=== PATIENT | female | born 1950 | race Caucasian/White ===

== ENCOUNTER 2017-02-17 17:38 | Inpatient (IN) | payer MEDICARE, BC ==
[~2017-02-17] VITALS: Ht 154.9 cm; Wt 72.6 kg
[~2017-02-17 17:38] MED LIST: ASPI-482 PO; FEXO30TA7 PO; INSU100V31 SQ; LEVO100T PO; LOSA1TAB17 PO; OMEP20CA9 PO; SIMV10TA3 PO; VERA180T49 PO
[2017-02-17] MEDS ORDERED: traMADol 50 MG TABLET PO ONE (19:15)
[2017-02-17] MEDS ORDERED: IBUPROFEN 400 MG TABLET. PO ONE (19:15)
--- NOTE | 2017-02-17 19:56 | PHYS DOC ---
Past Medical History Past Medical History: Diabetes-Type I, High Cholesterol, Hypertension Past Surgical History: Tonsillectomy, Tubal ligation Alcohol Use: None Drug Use: None Adult General Chief Complaint Chief Complaint: MECHANICAL FALL HPI HPI Patient is a 66 year old female who presents with left medial knee pain after fall from 3ft ladder to standing position and felt pop. She notes having to limp with help to walk. Pain is constant, worse with ROM or walking, achy. She landed on her feet and denies other injury. She denies numbness, tingling, weakness Review of Systems Review of Systems Constitutional: Denies fever or chills [] Eyes: Denies change in visual acuity, redness, or eye pain [] HENT: Denies nasal congestion or sore throat [] Respiratory: Denies cough or shortness of breath [] Cardiovascular: No additional information not addressed in HPI [] GI: Denies abdominal pain, nausea, vomiting, bloody stools or diarrhea [] : Denies dysuria or hematuria [] Musculoskeletal: Denies back pain [] Integument: Denies rash or skin lesions [] Neurologic: Denies headache, focal weakness or sensory changes [] Endocrine: Denies polyuria or polydipsia [] Current Medications Current Medications Current Medications Medications (Trade) Dose Ordered Sig/Florecita Start Time Stop Time Status Last Admin Dose Admin Acetaminophen (Tylenol) 650 mg PRN Q4HRS PRN 02/17/17 20:00 02/18/17 19:59 Ibuprofen (Motrin) 400 mg 1X ONCE 02/17/17 19:15 02/17/17 19:16 DC 02/17/17 19:36 400 MG Morphine Sulfate 2 mg PRN Q2HR PRN 02/17/17 20:00 02/18/17 19:59 02/17/17 20:23 2 MG Ondansetron HCl (Zofran) 4 mg PRN Q8HRS PRN 02/17/17 20:00 02/18/17 19:59 02/17/17 20:23 4 MG Tramadol HCl (Ultram) 50 mg 1X ONCE 02/17/17 19:15 02/17/17 19:16 DC 02/17/17 19:36 50 MG Allergies Allergies Allergies Coded Allergies Type Severity Reaction Last Updated Verified WES Inhibitors Allergy Severe "PRILS" MAKE HER COUGH 07/01/16 Yes Sulfa (Sulfonamide Antibiotics) Allergy Intermediate Hives 07/01/16 Yes latex Allergy Intermediate SEE COMMENT 07/01/16 Yes Physical Exam Physical Exam Constitutional: Well developed, well nourished, no acute distress, non-toxic appearance. [] HENT: Normocephalic, atraumatic, bilateral external ears normal, oropharynx moist, nose normal. [] Eyes: PERRLA, EOMI. [] Neck: Normal range of motion, supple. [] Cardiovascular:Heart rate regular rhythm [] Lungs & Thorax: Bilateral breath sounds clear to auscultation [] Abdomen: Bowel sounds normal, soft, no tenderness. [] Skin: Warm, dry, no erythema, no rash. [] Back: Normal ROM, no tenderness. [] Extremities: LLE with swelling and rubor to medial knee; intact overlying skin; tenderness to medial distal knee; no other leg tenderness; Knee ROM not tested due to pain; Able to flex/ex/IR/ER hip, ankle df/pf, toes df/pf; SILT qiu/sa/sp/ dp/tib distributions; 2+ dp and pt pulses equal bilaterally Neurologic: Alert and oriented X 3, normal motor function, normal sensory function, no focal deficits noted. [] Psychologic: Affect normal, judgement normal, mood normal. [] Current Patient Data Vital Signs Vital Signs Date Time Temp Pulse Resp B/P (MAP) Pulse Ox O2 Delivery O2 Flow Rate FiO2 02/17/17 19:30 88 146/68 (94) 96 Room Air 02/17/17 18:15 98.0 16 98.0 Radiology/Procedures Radiology/Procedures Left knee x-ray as interpreted by me as medial tibial plateau fracture with displacement and angulation. Course & Med Decision Making Course & Med Decision Making Pertinent Labs and Imaging studies reviewed. (See chart for details) Discussed case with Dr. Pineda, orthopedics, who recommends surgery tonight. He also recommends ABIs. Discussed with patient and family to anticipate surgery tonight. Discussed case with Dr. Rodríguez, who will admit. Dragon Disclaimer Dragon Disclaimer This electronic medical record was generated, in whole or in part, using a voice recognition dictation system. Departure Departure Impression: Primary Impression: Closed fracture of left tibial plateau Disposition: ADMITTED INPATIENT Condition: STABLE Referrals: GILBERT AMBRIZ MD (PCP) Problem Qualifiers Primary Impression: Closed fracture of left tibial plateau Encounter type: initial encounter Qualified Codes: S82.142A - Displaced bicondylar fracture of left tibia, initial encounter for closed fracture Tamra KELLEY MD February 17, 2017 19:56
[2017-02-17] MEDS ORDERED: ACETAMINOPHEN 325 MG TABLET. PO PRN (20:00)
[2017-02-17] MEDS ORDERED: MORPHINE SULFATE 2 MG/ML DISP.SYRIN. IV PRN ×3 (20:00→21:15)
[2017-02-17] MEDS: ONDANSETRON PF 4 MG/2 ML VIAL. IV PRN (20:23)
[2017-02-17 20:30] LABS: BASO # 0.1 x10^3/uL (0.0-0.2); BASO % 1 % (0-3); EOS % 0 % (0-3); HEMATOCRIT 35.1 % (36.0-47.0); HEMOGLOBIN 11.6 g/dL (12.0-15.5); LYMPH % 9 % (24-48); MEAN CORPUSCULAR HEMOGLOBIN 30 pg (25-35); MEAN CORPUSCULAR HGB CONC 33 g/dL (31-37); MEAN CORPUSCULAR VOLUME 89 fL (79-100); MONO % 4 % (0-9); NEUT % 86 % (31-73); PLATELET COUNT 227 x10^3/uL (140-400); RED BLOOD COUNT 3.93 x10^6/uL (3.50-5.40); RED CELL DISTRIBUTION WIDTH 13.1 % (11.5-14.5)
[2017-02-17] MEDS ORDERED: LIDOCAINE 1% PF 30 ML VIAL. ONE (20:39)
[2017-02-17] MEDS ORDERED: BUPIVACAINE MPF 0.5% 30 ML VIAL. ONE (20:39)
[2017-02-17 20:44] LABS: CALCIUM 9.6 mg/dL (8.5-10.1); GFR 55.1; POTASSIUM 3.3 mmol/L (3.5-5.1)
[2017-02-17] MEDS ORDERED: IV RINGERS,LACTATED 1000ML 1,000 ML IV SCH (20:50)
[2017-02-17] MEDS ORDERED: fentaNYL PF VIAL 100 MCG/2 ML VIAL IV PRN (21:00)
[2017-02-17] MEDS ORDERED: PROCHLORPERAZINE 10 MG/2 ML VIAL. IV PRN (21:00)
[2017-02-17] MEDS ORDERED: LIDOCAINE 1% 1 ML SYRINGE. ID PRN (21:00)
[2017-02-17] MEDS ORDERED: HYDROmorphone 2 MG/ML VIAL IV PRN (21:00)
[2017-02-17] MEDS ORDERED: ONDANSETRON PF 4 MG/2 ML VIAL. IV PRN (21:00)
[2017-02-17] MEDS ORDERED: ONDANSETRON PF 4 MG/2 ML VIAL. ONE (21:05)
[2017-02-17] MEDS ORDERED: fentaNYL PF VIAL 100 MCG/2 ML VIAL ONE (21:05)
[2017-02-17] MEDS ORDERED: PROPOFOL 20 ML IV ONE (21:05)
[2017-02-17] MEDS ORDERED: DEXAMETHASONE SOD PHOS 20 MG/5 ML VIAL. ONE (21:05)
[2017-02-17] MEDS ORDERED: LIDOCAINE 2% PF Vial for OR 5 ML VIAL. ONE (21:05)
--- NOTE | 2017-02-17 21:05 | PDOC ---
BRIEF OPERATIVE NOTE Date: February 17, 2017 Pre-Op Diagnosis Left tibial plateau fracture Post-Op Diagnosis same Procedure Performed Ex-fix L tibial plateau fracture Surgeon Edwin Anesthesiologist Maryam Anesthesia Type: General Blood Loss 10mL Complications none ELIF RICK II, MD February 17, 2017 21:05
[2017-02-17] MEDS ORDERED: HYDROcodone/APAP 5/325MG 1 TAB TABLET PO PRN (21:15)
--- NOTE | 2017-02-17 21:17 | PDOC ---
ORTHO PROGRESS NOTES Vitals Vital Signs Date Time Temp Pulse Resp B/P (MAP) Pulse Ox O2 Delivery O2 Flow Rate FiO2 02/17/17 18:15 98.0 90 16 143/66 (91) 96 Room Air 98.0 Labs Laboratory Tests Test 02/17/17 20:20 White Blood Count 12.0 x10^3/uL (4.0-11.0) Red Blood Count 3.93 x10^6/uL (3.50-5.40) Hemoglobin 11.6 g/dL (12.0-15.5) Hematocrit 35.1 % (36.0-47.0) Mean Corpuscular Volume 89 fL (79-100) Mean Corpuscular Hemoglobin 30 pg (25-35) Mean Corpuscular Hemoglobin Concent 33 g/dL (31-37) Red Cell Distribution Width 13.1 % (11.5-14.5) Platelet Count 227 x10^3/uL (140-400) Neutrophils (%) (Auto) 86 % (31-73) Lymphocytes (%) (Auto) 9 % (24-48) Monocytes (%) (Auto) 4 % (0-9) Eosinophils (%) (Auto) 0 % (0-3) Basophils (%) (Auto) 1 % (0-3) Neutrophils # (Auto) 10.3 x10^3uL (1.8-7.7) Lymphocytes # (Auto) 1.0 x10^3/uL (1.0-4.8) Monocytes # (Auto) 0.5 x10^3/uL (0.0-1.1) Eosinophils # (Auto) 0.0 x10^3/uL (0.0-0.7) Basophils # (Auto) 0.1 x10^3/uL (0.0-0.2) Sodium Level 139 mmol/L (136-145) Potassium Level 3.3 mmol/L (3.5-5.1) Chloride Level 101 mmol/L (98-107) Carbon Dioxide Level 28 mmol/L (21-32) Anion Gap 10 (6-14) Blood Urea Nitrogen 20 mg/dL (7-20) Creatinine 1.0 mg/dL (0.6-1.0) Estimated GFR (Cockcroft-Gault) 55.1 Glucose Level 285 mg/dL (70-99) Calcium Level 9.6 mg/dL (8.5-10.1) Laboratory Tests Test 02/17/17 20:20 White Blood Count 12.0 x10^3/uL (4.0-11.0) Red Blood Count 3.93 x10^6/uL (3.50-5.40) Hemoglobin 11.6 g/dL (12.0-15.5) Hematocrit 35.1 % (36.0-47.0) Mean Corpuscular Volume 89 fL (79-100) Mean Corpuscular Hemoglobin 30 pg (25-35) Mean Corpuscular Hemoglobin Concent 33 g/dL (31-37) Red Cell Distribution Width 13.1 % (11.5-14.5) Platelet Count 227 x10^3/uL (140-400) Neutrophils (%) (Auto) 86 % (31-73) Lymphocytes (%) (Auto) 9 % (24-48) Monocytes (%) (Auto) 4 % (0-9) Eosinophils (%) (Auto) 0 % (0-3) Basophils (%) (Auto) 1 % (0-3) Neutrophils # (Auto) 10.3 x10^3uL (1.8-7.7) Lymphocytes # (Auto) 1.0 x10^3/uL (1.0-4.8) Monocytes # (Auto) 0.5 x10^3/uL (0.0-1.1) Eosinophils # (Auto) 0.0 x10^3/uL (0.0-0.7) Basophils # (Auto) 0.1 x10^3/uL (0.0-0.2) Sodium Level 139 mmol/L (136-145) Potassium Level 3.3 mmol/L (3.5-5.1) Chloride Level 101 mmol/L (98-107) Carbon Dioxide Level 28 mmol/L (21-32) Anion Gap 10 (6-14) Blood Urea Nitrogen 20 mg/dL (7-20) Creatinine 1.0 mg/dL (0.6-1.0) Estimated GFR (Cockcroft-Gault) 55.1 Glucose Level 285 mg/dL (70-99) Calcium Level 9.6 mg/dL (8.5-10.1) Assessment and Plan ABIs reviewed, normal R 1.13 L 1.15 ABERLE,ELIF S II MD February 17, 2017 21:17
[2017-02-17 21:23] LABS: PLT ESTIMATE ADEQUATE (ADEQUATE)
--- NOTE | 2017-02-17 21:27 | RAD ---
PROCEDURE Ankle brachial indices HISTORY Tibial plateau fracture, preop COMPARISON None FINDINGS Ankle-brachial indices were obtained. Right HEIDI was 1.13, left 1.15. IMPRESSION 1. Ankle-brachial indices are within normal limits. Electronically signed by: Kevin Gooden MD (February 17, 2017 21:25:37)
[2017-02-17] MEDS ORDERED: ePHEDrine PF IN SALINE 50 MG/5 ML DISP.SYRIN IV ONE (21:38)
[2017-02-17] MEDS ORDERED: PHENYLEPHRINE in 0.9% NACL PF 1 MG/10 ML DISP.SYRIN. IV ONE (21:57)
[2017-02-17] MEDS ORDERED: SEVOFLURANE 31 TO 60 MINUTES. IH ONE (21:57)
[2017-02-17] MEDS: fentaNYL PF VIAL 100 MCG/2 ML VIAL IV PRN ×2 (22:25→22:46)
[2017-02-17 23:10] VITALS: BP 116/72
[2017-02-17 23:30] VITALS: BP 110/70
--- NOTE | 2017-02-17 23:35 | ACF ---
Admission Forms Criteria MUSCULOSKELETAL DISEASE GRG Clinical Indications for Admission to Inpatient Care (Place 'X' for any and all applicable criteria): Hospital admission is needed for appropriate care of the patient because of 1 or more of the following: [X ]I. Fracture, dislocation, or other musculoskeletal injury requiring inpatient care(medical) as indicated by 1 or more of the following(4)(5)(6)(7) [ ]a) Vertebral fracture requiring observation for instability or neurologic compromise (8) [ ]b) Compartment syndrome (proven or cannot be ruled out during observation level of care) (9) [ ]c) Limb-threatening injury [X ]d) Major injury requiring inpatient stabilization such as traction initiation or external fixation before internal fixation or closure of complex or open fracture [ ]e) Major injury requiring inpatient treatment after emergency or observation level care (as appropriate) [ ]f) Severe pain requiring acute inpatient management [ ]g) Injury with suspicion of abuse or neglect (eg., child, dependent elderly) [ ]II. Newly diagnosed or suspected bone, joint, or orthopedic device infection (e.g., osteomyelitis, septic arthritis) needing 1 or more of the following(1)(2)(3) [ ]a) IV antibiotics that cannot be initiated in other than inpatient setting (e.g., patient too unstable or home infusion not available) [ ]b) Device removal or replacement [ ]c) Bone or soft tissue debridement [ ]d) Joint drainage (drain placement or repetitive aspirations) [ ]III. Severe rheumatologic disease (e.g., systemic lupus erythematosus, rheumatoid arthritis) with complications or comorbidities (Also use Optimal Recovery Care Criteria or General Recovery Criteria as appropriate on the basis of predominant condition), including 1 or more of the following( 10)(11)(12)(13) [ ]a) Severe infection (e.g., REGULATOR OPERATOR infection, sepsis) (14) [ ]b) Respiratory complications, including 1 or more of the following : [ ]i) Pleural effusion with respiratory compromise [ ]ii) Pulmonary hypertension with congestive failure [ ]iii) Respiratory failure [ ]iv) Pulmonary hemorrhage (15) [ ]c) Hematologic disease, including 1 or more of the following: [ ]i) Coagulopathy with bleeding [ ]ii) Thrombosis with hypercoagulable state [ ]iii) Thrombotic thrombocytopenic purpura [ ]d) Cerebritis with seizures, psychosis, or other severe abnormalities [ ]e) Vertebral destruction with monitoring needed for cervical myelopathy& possible respiratory compromise [ ]f) Exacerbation that requires inpatient treatment (e.g., intravenous immunosuppression) (16) [ ]g) Acute renal failure [ ]h) Cerebritis with seizures, psychosis, Altered mental status, or other neurologic abnormalities [ ]i) Pericardial effusion with tamponade [ ]j) Vertebral destruction, with monitoring needed for cervical myelopathy and possible respiratory compromise [ ]IV. Severe vasculitis with complications or comorbidities (Also use Optimal Recovery Care Criteria General Recovery Criteria as appropriate on the basis of predominant condition), including 1 or more of the following(11)(12)(17)(18)(19)(20) [ ]a) Exacerbation that requires inpatient treatment (e.g., intravenous immunosuppression) (19)(21) [ ]b) Pulmonary hemorrhage (15) [ ]c) REGULATOR OPERATOR vasculitis with seizures, psychosis, Altered mental status that is severe or persistent, or other severe abnormalities (22) [ ]d) Cerebral infarction [ ]e) Gastrointestinal ischemia [ ]f) Gangrene or threatened amputation [ ]g) Renal failure (16) [ ]h) Other significant complications of vasculitis ( eg., tissue or organ ischemia, organ dysfunction ) [ ]V. Severe myopathy as indicated by 1 or more of the following (28)(29) [ ]a) New onset of airway compromise or inability to swallow [ ]b) Respiratory deterioration with observation needed for impending respiratory failure [ ]c) Exacerbation that requires inpatient treatment (e.g., intravenous immunosuppression) [ ]. Severe crystal gout (arthropathy) indicated by 1 or more of the following (23)(24) [ ]a) Severe pain requiring acute inpatient management [ ]b) Exacerbation that requires inpatient treatment (e.g., intravenous treatment) [ ]VII.Rhabdomyolysis and 1 or more of the following (25)(26)(27) [ ]a) Acute renal failure [ ]b) Need for intravenous hydration after emergency or observation level care (as appropriate) [ ]c) Inability to maintain oral hydration [ ]d) Change in mental status [ ]e) Electrolyte abnormality that remains after emergency or observation level care (as appropriate) [ ]VIII Post amputation complication, as indicated by ANY ONE of the following [ ]a) Infection [ ]b) Dehiscence [ ]c) Myodesis failure [ ]IX. Severe pain requiring acute inpatient management due to musculoskeletal condition [ ]X. Musculoskeletal Disease and ALL of the following: [ ]a) Symptom or finding for which emergency and observation care have failed or are not considered appropriate (Use General Criteria: Observation Care as appropriate) [ ]b) Presence of ANY ONE of the following [ ]i) A General Admission Criteria [ ]ii) A Pediatric General Admission Criteria The original [facility] [employer] content created by [facility] has been revised. The portions of the content which have been revised are identified through the use of italic text or in bold, and [facility] has neither reviewed nor approved the modified material. All other unmodified content is copyright [facility] [employer]. Please see references footnoted in the original [facility] edition 2016 Admission Criteria Met?: Yes LORENA ESTEVEZ February 17, 2017 23:35
[2017-02-18] VITALS (7 sets, daily range): BP systolic 94–110; BP diastolic 51–77
--- NOTE | 2017-02-18 00:51 | OP ---
DATE OF SURGERY: 02/17/2017 SURGEON: Anselmo Rick MD ERP ENGINEER: None. ANESTHESIA: General. PREOPERATIVE DIAGNOSIS: Displaced closed left tibial plateau fracture. POSTOPERATIVE DIAGNOSIS: Displaced closed left tibial plateau fracture. PROCEDURE PERFORMED: Placement of external fixator across the knee. ESTIMATED BLOOD LOSS: 10 mL COMPONENTS INSERTED: Mullen [employer] Nephew ex-fix was used with two 5 x 30 pins in the tibia and two 5 x 45 pins in the femur. COMPLICATIONS: None. REASON FOR PROCEDURE: The patient is a very pleasant 66-year-old female who had a fall a couple of hours ago and presented to our facility. For details, please see my consult note. Because of her knee dislocation equivalent and her fracture alignment, I elected to proceed with placement of ex-fix to help protect the soft tissues. Her ABIs were normal prior to coming back to the OR. She had good pulses as well. DESCRIPTION OF PROCEDURE: The patient was greeted in the Emergency Department where the correct extremity was verified. I had a discussion of risks, benefits and alternatives with her and her son. We came back to the operating room and she had successful induction of general anesthesia in the ER cart. We then transferred gently supine to the hospital bed and then secured to the bed. We then proceeded to prep and drape the left lower extremity up to about the hip and groin with ChloraPrep. We then conducted our standard preoperative timeout after draping. After this, I palpated grossly for her femur and made 2 stab incisions anteriorly using my 4-pin clamp as a template. I then used the hemostat to bluntly dissect down the femur and then placed my soft tissue protector trocar into the incision and removed the inner sheath and then felt for the midshaft with the tip of my half pin and then inserted the half pin. I then repeated this maneuver just distal to this. I then secured the 4-pin clamp and then directed my attention to repeating the same maneuver at her distal tibial region. After this, I attached my angled posts and secured to 30 cm bars to each of the 4-hole clamps with a bar-to-bar connector in between and then pulled traction and tightened the bar-to-bar clamp over the knee. Fluoroscopy was used to confirm appropriate reduction of her knee. I checked AP and lateral. I also checked lateral to guide my pin placement. After this, we placed a sterile dressing and a sterile cast padding, padding for the lower extremity well especially the heel, followed by a long Mauricio wrap. She was then awakened from anesthesia. She tolerated the surgery well. No complications. Postop plan is to admit her to the floor for observation and neurovascular checks. We will follow along closely with her. She will have ABIs again in the morning. She will be admitted to the hospitalist service. ANSELMO RICK MD DR: LESLEY/song JOB#: [id number] / [id number] ALCIRA
--- NOTE | 2017-02-18 05:43 | CONS ---
DATE OF CONSULTATION: 02/17/2017 REFERRING PROVIDER: Gerard Buenrostro M.D. CONSULTING PROVIDER: Anselmo Rick M.D. REASON FOR CONSULTATION: Closed left tibial plateau fracture. CHIEF COMPLAINT: Left knee pain. HISTORY OF PRESENT ILLNESS: The patient is a very pleasant 66-year-old fairly healthy female with a history of type 1 diabetes, who fell from a 3-foot ladder while trying to adjust some wiring in her house. She felt immediate pop and pain and noticed deformity and because of inability to ambulate, she presented to the Emergency Department where x-rays revealed a tibial plateau fracture. She feels pain all around her knee. It does radiate down her leg. It is worse with any attempted weightbearing or motion at her knee. She denies any abnormal sensation in her foot or toes. Her pain is not steadily worsening. It is fairly constant right now. PAST MEDICAL HISTORY: 1. Type 1 diabetes, on pump. 2. Hypercholesterolemia. 3. Hypertension. PAST SURGICAL HISTORY: 1. Tonsillectomy. 2. History of tubal. SOCIAL HISTORY: No alcohol or tobacco. She lives very close to family. She recently lost her in September. MEDICATIONS: Reviewed, please see MRAD. ALLERGIES: 1. WES INHIBITORS. 2. SULFA. 3. LATEX. FAMILY HISTORY: Noncontributory. PHYSICAL EXAMINATION: GENERAL: The patient is alert and oriented, really in no acute distress while at rest. HEENT: Head normocephalic, atraumatic. Extraocular muscles are intact. CARDIOVASCULAR: Regular rate and rhythm. Dorsalis pedis 2+ and symmetric. No edema at her ankles. LUNGS: Respirations are unlabored with symmetric chest rise. ABDOMEN: Soft, nondistended. EXTREMITIES: Examination of bilateral upper extremities reveals full pain free range of motion. No gross deformity. Examination of bilateral lower extremities reveals obvious gross deformity around her knee with fair amount of swelling. Compartments are soft and compressible. No pain with passive range of motion of the ankle or great toe. She can wiggle her toes. Normal sensation in her foot. She is tender globally around her knee and proximal tibial region. She does have knee effusion present. No tenderness in her foot. IMAGING: X-rays are reviewed. Knee series was interpreted by myself. She has a left primarily medial and posteromedial tibial plateau fracture. IMPRESSION: Closed left proximal tibial fracture. PLAN: I did discuss proceeding with an emergent ex-fix for her. I did also discuss I would be following her with serial exams and ABIs. This essentially is a knee dislocation variant and warrants such. I did discuss that definitive fixation will take place once her soft tissues have recovered. She will be admitted to the hospitalist service and I will be following along with her. We will take her back to the OR on an emergent basis. ANSELMO RICK MD DR: LESLEY/song JOB#: [id number] / [id number] ALCIRA
[2017-02-18] MEDS: ONDANSETRON PF 4 MG/2 ML VIAL. IV PRN (05:59)
[2017-02-18] MEDS ORDERED: DULO30CA2 PO (06:11)
[2017-02-18] MEDS ORDERED: AMLO10TA2 PO (06:11)
--- NOTE | 2017-02-18 08:32 | RAD ---
Indication: Trauma, fall today. Technique: Portable 3 views of the left knee are submitted for review. Findings: Comminuted fracture of the proximal tibia extends into both the medial and lateral plateaus and the intercondylar eminence. One of the fragments of the medial tibial plateau is depressed 14 mm. A medial fragment of the lateral tibial plateau is depressed 9 mm. Tibial shaft is displaced anteriorly in relation to the proximal fragments x 1 cm. There is soft tissue swelling and a small joint effusion. An additional fracture is not identified. Impression: Comminuted acute traumatic fracture of the proximal tibia.
[2017-02-18] MEDS ORDERED: ENOXAPARIN 40 MG/0.4 ML SYRINGE. SQ SCH (09:00)
--- NOTE | 2017-02-18 09:04 | PDOC ---
ORTHO PROGRESS NOTES Subjective BS a little high, pain controlled. No new complaints Vitals Vital Signs Date Time Temp Pulse Resp B/P (MAP) Pulse Ox O2 Delivery O2 Flow Rate FiO2 02/18/17 07:00 97.5 83 20 108/52 (70) 98 Room Air 97.5 02/17/17 22:25 8.0 Labs Laboratory Tests Test 02/17/17 20:20 02/17/17 21:14 02/17/17 22:17 02/18/17 07:51 White Blood Count 12.0 x10^3/uL (4.0-11.0) Red Blood Count 3.93 x10^6/uL (3.50-5.40) Hemoglobin 11.6 g/dL (12.0-15.5) Hematocrit 35.1 % (36.0-47.0) Mean Corpuscular Volume 89 fL (79-100) Mean Corpuscular Hemoglobin 30 pg (25-35) Mean Corpuscular Hemoglobin Concent 33 g/dL (31-37) Red Cell Distribution Width 13.1 % (11.5-14.5) Platelet Count 227 x10^3/uL (140-400) Neutrophils (%) (Auto) 86 % (31-73) Lymphocytes (%) (Auto) 9 % (24-48) Monocytes (%) (Auto) 4 % (0-9) Eosinophils (%) (Auto) 0 % (0-3) Basophils (%) (Auto) 1 % (0-3) Neutrophils # (Auto) 10.3 x10^3uL (1.8-7.7) Lymphocytes # (Auto) 1.0 x10^3/uL (1.0-4.8) Monocytes # (Auto) 0.5 x10^3/uL (0.0-1.1) Eosinophils # (Auto) 0.0 x10^3/uL (0.0-0.7) Basophils # (Auto) 0.1 x10^3/uL (0.0-0.2) Segmented Neutrophils % 81 % (35-66) Band Neutrophils % 3 % (0-9) Lymphocytes % 14 % (24-48) Monocytes % 2 % (0-10) Platelet Estimate Adequate (ADEQUATE) Sodium Level 139 mmol/L (136-145) Potassium Level 3.3 mmol/L (3.5-5.1) Chloride Level 101 mmol/L (98-107) Carbon Dioxide Level 28 mmol/L (21-32) Anion Gap 10 (6-14) Blood Urea Nitrogen 20 mg/dL (7-20) Creatinine 1.0 mg/dL (0.6-1.0) Estimated GFR (Cockcroft-Gault) 55.1 Glucose Level 285 mg/dL (70-99) Calcium Level 9.6 mg/dL (8.5-10.1) Glucose (Fingerstick) 251 mg/dL (70-99) 220 mg/dL (70-99) 257 mg/dL (70-99) Laboratory Tests Test 02/17/17 20:20 02/17/17 21:14 02/17/17 22:17 02/18/17 07:51 White Blood Count 12.0 x10^3/uL (4.0-11.0) Red Blood Count 3.93 x10^6/uL (3.50-5.40) Hemoglobin 11.6 g/dL (12.0-15.5) Hematocrit 35.1 % (36.0-47.0) Mean Corpuscular Volume 89 fL (79-100) Mean Corpuscular Hemoglobin 30 pg (25-35) Mean Corpuscular Hemoglobin Concent 33 g/dL (31-37) Red Cell Distribution Width 13.1 % (11.5-14.5) Platelet Count 227 x10^3/uL (140-400) Neutrophils (%) (Auto) 86 % (31-73) Lymphocytes (%) (Auto) 9 % (24-48) Monocytes (%) (Auto) 4 % (0-9) Eosinophils (%) (Auto) 0 % (0-3) Basophils (%) (Auto) 1 % (0-3) Neutrophils # (Auto) 10.3 x10^3uL (1.8-7.7) Lymphocytes # (Auto) 1.0 x10^3/uL (1.0-4.8) Monocytes # (Auto) 0.5 x10^3/uL (0.0-1.1) Eosinophils # (Auto) 0.0 x10^3/uL (0.0-0.7) Basophils # (Auto) 0.1 x10^3/uL (0.0-0.2) Segmented Neutrophils % 81 % (35-66) Band Neutrophils % 3 % (0-9) Lymphocytes % 14 % (24-48) Monocytes % 2 % (0-10) Platelet Estimate Adequate (ADEQUATE) Sodium Level 139 mmol/L (136-145) Potassium Level 3.3 mmol/L (3.5-5.1) Chloride Level 101 mmol/L (98-107) Carbon Dioxide Level 28 mmol/L (21-32) Anion Gap 10 (6-14) Blood Urea Nitrogen 20 mg/dL (7-20) Creatinine 1.0 mg/dL (0.6-1.0) Estimated GFR (Cockcroft-Gault) 55.1 Glucose Level 285 mg/dL (70-99) Calcium Level 9.6 mg/dL (8.5-10.1) Glucose (Fingerstick) 251 mg/dL (70-99) 220 mg/dL (70-99) 257 mg/dL (70-99) Notes A and A pin sites c/d/i wiggles toes, normal sensation, DP2+ on LLE compartments soft, no pain with PROM Assessment and Plan PT to see how well she mobilize, if she does ok, I'm ok with D/C if not, rehab Lovenox and CT scan this am awaiting repeat ELIF Walker II, MD February 18, 2017 09:04
--- NOTE | 2017-02-18 10:08 | RAD ---
Indication: External fixation of a left tibial plateau fracture. Technique: ABIs were calculated. Comparison is from one day earlier. Findings: Right HEIDI is calculated at 1.3 and the left 1.1. On prior exam, both ABIs were 1.1 Impression: ABIs are within normal limits.
--- NOTE | 2017-02-18 10:10 | PDOC1 ---
History and Physical Current Problem List Problem List Problems Medical Problems: (1) Closed fracture of left tibial plateau Status: Acute Current Medications Current Medications Current Medications Medications (Trade) Dose Ordered Sig/Florecita Start Time Stop Time Status Last Admin Dose Admin Acetaminophen (Tylenol) 650 mg PRN Q4HRS PRN 02/17/17 20:00 02/18/17 19:59 Acetaminophen/ Hydrocodone Bitart (Lortab 5/325) 1 tab PRN Q4HRS PRN 02/17/17 21:15 02/18/17 06:00 1 TAB Bupivacaine HCl (Sensorcaine Mpf 0.5%) 30 ml STK-MED ONCE 02/17/17 20:39 02/17/17 20:40 DC Cefazolin Sodium 1 gm/Sodium Chloride 50 ml @ 100 mls/hr Q6H 02/18/17 00:00 02/18/17 12:29 02/18/17 06:06 100 MLS/HR Cefazolin Sodium/ Dextrose 50 ml @ 100 mls/hr 1X ONCE 02/17/17 22:00 02/17/17 22:29 DC 02/17/17 21:25 100 MLS/HR Dexamethasone Sodium Phosphate (Decadron) 20 mg STK-MED ONCE 02/17/17 21:05 02/17/17 21:06 DC Enoxaparin Sodium (Lovenox 40mg Syringe) 40 mg Q24H 02/18/17 09:00 Ephedrine Sulfate 50 mg STK-MED ONCE 02/17/17 21:38 02/17/17 21:39 DC Fentanyl Citrate (Fentanyl 2ml Vial) 100 mcg STK-MED ONCE 02/17/17 21:05 02/17/17 21:06 DC Hydromorphone HCl (Dilaudid) 0.5 mg PRN Q10MIN PRN 02/17/17 21:00 02/18/17 20:59 Ibuprofen (Motrin) 400 mg 1X ONCE 02/17/17 19:15 02/17/17 19:16 DC 02/17/17 19:36 400 MG Lidocaine HCl (Lidocaine Pf 2% Vial) 5 ml STK-MED ONCE 02/17/17 21:05 02/17/17 21:06 DC Morphine Sulfate 2 mg PRN Q2HR PRN 02/17/17 21:15 Ondansetron HCl (Zofran) 4 mg STK-MED ONCE 02/17/17 21:05 02/17/17 21:06 DC Phenylephrine HCl 1 mg STK-MED ONCE 02/17/17 21:57 02/17/17 21:58 DC Prochlorperazine Edisylate (Compazine) 5 mg PACU PRN PRN 02/17/17 21:00 02/18/17 20:59 Propofol 20 ml @ As Directed STK-MED ONCE 02/17/17 21:05 02/17/17 21:06 DC Ringer's Solution 1,000 ml @ 0 mls/hr Q0M 02/17/17 20:50 02/18/17 08:49 DC Sevoflurane (Ultane) 30 ml STK-MED ONCE 02/17/17 21:57 02/17/17 21:58 DC Tramadol HCl (Ultram) 50 mg 1X ONCE 02/17/17 19:15 02/17/17 19:16 DC 02/17/17 19:36 50 MG Allergies Allergies Allergies Coded Allergies Type Severity Reaction Last Updated Verified WES Inhibitors Allergy Severe "PRILS" MAKE HER COUGH 07/01/16 Yes Sulfa (Sulfonamide Antibiotics) Allergy Intermediate Hives 07/01/16 Yes latex Allergy Intermediate SEE COMMENT 07/01/16 Yes ROS Review of System CONSTITUTIONAL: fall EYES: No recent changes SKIN: No rash or itching CARDIOVASCULAR: No chest pain, syncope, palpitations, or edema RESPIRATORY: No SOB or cough GASTROINTESTINAL: No nausea, vomiting or abdominal pain NEUROLOGICAL: No headaches or weakness ENDOCRINE: No cold or heat intolerance GENITOURINARY: No urgency or frequency of urination MUSCULOSKELETAL: fracture LYMPHATICS: No enlarged lymph nodes PSYCHIATRIC: No anxiety or depression Physical Exam Physical Exam GEN.: No apparent distress. Alert and oriented. HEENT: Head is normocephalic, atraumatic NECK: Supple. no JVD LUNGS: Clear to auscultation. normal airflow HEART: RRR, S1, S2 present. Peripheral pulses intact ABDOMEN: Soft, nontender. Positive bowel sounds. EXTREMITIES: Without any cyanosis.ext prost present, pulses intact. NEUROLOGIC: Normal speech, normal tone PSYCHIATRIC: Normal affect, normal mood. SKIN: No ulcerations Vitals Vitals Vital Signs Date Time Temp Pulse Resp B/P (MAP) Pulse Ox O2 Delivery O2 Flow Rate FiO2 02/18/17 07:00 97.5 83 20 108/52 (70) 98 Room Air 97.5 02/17/17 22:25 8.0 Labs Labs Laboratory Tests Test 02/17/17 20:20 02/17/17 21:14 02/17/17 22:17 02/18/17 07:51 White Blood Count 12.0 x10^3/uL (4.0-11.0) Red Blood Count 3.93 x10^6/uL (3.50-5.40) Hemoglobin 11.6 g/dL (12.0-15.5) Hematocrit 35.1 % (36.0-47.0) Mean Corpuscular Volume 89 fL (79-100) Mean Corpuscular Hemoglobin 30 pg (25-35) Mean Corpuscular Hemoglobin Concent 33 g/dL (31-37) Red Cell Distribution Width 13.1 % (11.5-14.5) Platelet Count 227 x10^3/uL (140-400) Neutrophils (%) (Auto) 86 % (31-73) Lymphocytes (%) (Auto) 9 % (24-48) Monocytes (%) (Auto) 4 % (0-9) Eosinophils (%) (Auto) 0 % (0-3) Basophils (%) (Auto) 1 % (0-3) Neutrophils # (Auto) 10.3 x10^3uL (1.8-7.7) Lymphocytes # (Auto) 1.0 x10^3/uL (1.0-4.8) Monocytes # (Auto) 0.5 x10^3/uL (0.0-1.1) Eosinophils # (Auto) 0.0 x10^3/uL (0.0-0.7) Basophils # (Auto) 0.1 x10^3/uL (0.0-0.2) Segmented Neutrophils % 81 % (35-66) Band Neutrophils % 3 % (0-9) Lymphocytes % 14 % (24-48) Monocytes % 2 % (0-10) Platelet Estimate Adequate (ADEQUATE) Sodium Level 139 mmol/L (136-145) Potassium Level 3.3 mmol/L (3.5-5.1) Chloride Level 101 mmol/L (98-107) Carbon Dioxide Level 28 mmol/L (21-32) Anion Gap 10 (6-14) Blood Urea Nitrogen 20 mg/dL (7-20) Creatinine 1.0 mg/dL (0.6-1.0) Estimated GFR (Cockcroft-Gault) 55.1 Glucose Level 285 mg/dL (70-99) Calcium Level 9.6 mg/dL (8.5-10.1) Glucose (Fingerstick) 251 mg/dL (70-99) 220 mg/dL (70-99) 257 mg/dL (70-99) Laboratory Tests Test 02/17/17 20:20 02/17/17 21:14 02/17/17 22:17 02/18/17 07:51 White Blood Count 12.0 x10^3/uL (4.0-11.0) Red Blood Count 3.93 x10^6/uL (3.50-5.40) Hemoglobin 11.6 g/dL (12.0-15.5) Hematocrit 35.1 % (36.0-47.0) Mean Corpuscular Volume 89 fL (79-100) Mean Corpuscular Hemoglobin 30 pg (25-35) Mean Corpuscular Hemoglobin Concent 33 g/dL (31-37) Red Cell Distribution Width 13.1 % (11.5-14.5) Platelet Count 227 x10^3/uL (140-400) Neutrophils (%) (Auto) 86 % (31-73) Lymphocytes (%) (Auto) 9 % (24-48) Monocytes (%) (Auto) 4 % (0-9) Eosinophils (%) (Auto) 0 % (0-3) Basophils (%) (Auto) 1 % (0-3) Neutrophils # (Auto) 10.3 x10^3uL (1.8-7.7) Lymphocytes # (Auto) 1.0 x10^3/uL (1.0-4.8) Monocytes # (Auto) 0.5 x10^3/uL (0.0-1.1) Eosinophils # (Auto) 0.0 x10^3/uL (0.0-0.7) Basophils # (Auto) 0.1 x10^3/uL (0.0-0.2) Segmented Neutrophils % 81 % (35-66) Band Neutrophils % 3 % (0-9) Lymphocytes % 14 % (24-48) Monocytes % 2 % (0-10) Platelet Estimate Adequate (ADEQUATE) Sodium Level 139 mmol/L (136-145) Potassium Level 3.3 mmol/L (3.5-5.1) Chloride Level 101 mmol/L (98-107) Carbon Dioxide Level 28 mmol/L (21-32) Anion Gap 10 (6-14) Blood Urea Nitrogen 20 mg/dL (7-20) Creatinine 1.0 mg/dL (0.6-1.0) Estimated GFR (Cockcroft-Gault) 55.1 Glucose Level 285 mg/dL (70-99) Calcium Level 9.6 mg/dL (8.5-10.1) Glucose (Fingerstick) 251 mg/dL (70-99) 220 mg/dL (70-99) 257 mg/dL (70-99) VTE Prophylaxis Ordered VTE Prophylaxis Devices: Yes VTE Pharmacological Prophylaxi: Yes CELIO CLIFFORD MD February 18, 2017 10:10
--- NOTE | 2017-02-18 11:09 | RAD ---
Indication: Tibial plateau fracture, surgical planning Technique: Axial images and coronal and sagittal reformatted images are provided. Comparison is made to radiographs from yesterday. One or more of the following individualized dose reduction techniques were utilized for this examination: 1. Automated exposure control 2. Adjustment of the mA and/or kV according to patient size 3. Use of iterative reconstruction technique Findings: The degree of depression of fragments noted on prior study appears improved on today's exam. Comminuted proximal tibial fracture is again noted. Depression of the medial tibial plateau is improved. There is still mild depression of a fragment of the lateral tibial plateau although the amount of depression is decreased, now 6 to 7 mm. Fractures again extend into the intercondylar eminence. No femur or proximal fibula fracture is identified. There is soft tissue swelling and a small joint effusion. Impression: Comminuted proximal tibial fracture.
[2017-02-18] MEDS ORDERED: ENOX40DI SQ (11:52)
[2017-02-18] MEDS ORDERED: HYDR-971 PO (11:53)
[2017-02-18] MEDS ORDERED: POTASSIUM CHLORIDE 20 MEQ TABLET.ER. PO ONE (12:00)
--- NOTE | 2017-02-18 23:17 | SSS ---
ADMIT DATE: 02/18/2017 CHIEF COMPLAINT: Mechanical fall at home. HISTORY OF PRESENT ILLNESS: A 66-year-old female patient with prior history of type 1 diabetes mellitus on insulin pump and hypertension, hyperlipidemia, brought to the hospital after she sustained a mechanical fall at home from ladder. She heard a popping noise and noted to have a limp while she was walking and some pain and limited range of motion. On initial arrival to the ER the patient was diagnosed with displaced closed left tibial plateau fracture and Dr. Pineda was consulted. She states her pain is controlled. Denies any fever, chills. PAST MEDICAL HISTORY: Type 1 diabetes mellitus, on insulin pump; hyperlipidemia, hypertension. PAST SURGICAL HISTORY: Tonsillectomy. SOCIAL HISTORY: No smoking, no alcohol, no drug abuse. MEDICATIONS: Reviewed. Please see my MRAD. ALLERGIES: WES INHIBITOR, SULFA, LATEX. FAMILY HISTORY: Unknown to the patient. REVIEW OF SYSTEMS: Please see my electronic H and P. PHYSICAL EXAMINATION: Please see my electronic H and P. IMAGING STUDIES: Left ____ medial tibial plateau fracture. ASSESSMENT: 1. Closed left proximal tibial fracture, status post placement of external fixator across the knee. 2. Type 1 diabetes mellitus with mild hyperglycemia, on insulin pump. 3. Hyperlipidemia. 4. Pain due to fracture. 5. Deep venous thrombosis prophylaxis. 6 PLAN: 1. The patient was seen by Dr. Pineda and she was asking Physical Therapy to evaluate the patient about rehab needs and the patient was evaluated by Physical Therapy. They deemed her stable enough to go home and follow up with Dr. Pineda in couple of days. The patient was provided with Lovenox and pain scripts. She is recommended to bear weight as tolerated. 2. I did discuss with the patient and son at bedside if they have enough help at family and they did not want any rehab needs at this time. The pain has been well controlled with hydrocodone and [place] 5/325 mg q. 4 hours as needed. 3. The patient is scheduled to see Dr. Pineda in a couple of weeks. DISCHARGE DISPOSITION: Home. DISCHARGE CONDITION: Stable. FOLLOWUP: With Dr. Pineda in a couple of days. DISCHARGE MEDICATIONS: New medication scripts provided. Please see MRAD. Total time spent for H and P and discharge summary is 50 minutes. CELIO CLIFFORD MD DR: Phuong JOB#: [id number] / [id number] [place]
== END 2017-02-18 15:20 | disposition home or self-care (01) | DRG 494 ==
LOC: ER 17:38 → 4 NORTH 20:15
PROVIDERS: ADMIT Internal Medicine; ATTEND Internal Medicine
PROC: 0QSH35Z Reposition Left Tibia with External Fixation Device, Percutaneous Approach (ICD-10-PCS; principal; 2017-02-17 21:00)
DX: S82.142A Displaced bicondylar fracture of left tibia, initial encounter for closed fracture (principal); E78.00 Pure hypercholesterolemia, unspecified; E78.5 Hyperlipidemia, unspecified; I10 Essential (primary) hypertension; Z96.41 Presence of insulin pump (external) (internal); W19.XXXA Unspecified fall, initial encounter; E10.65 Type 1 diabetes mellitus with hyperglycemia; S83.106A Unspecified dislocation of unspecified knee, initial encounter; Y93.89 Activity, other specified; Y99.8 Other external cause status; Y92.009 Unspecified place in unspecified non-institutional (private) residence as the place of occurrence of the external cause; Z98.51 Tubal ligation status; Z79.4 Long term (current) use of insulin; Z88.2 Allergy status to sulfonamides; Z88.8 Allergy status to other drugs, medicaments and biological substances; Z91.040 Latex allergy status
CPT/HCPCS: 29505; 36415; 73562; 73700; 76000; 80048; 82947; 85007; 85027; 93922; 96374; C1781; J0690; J1100; J1650; J2270; J2370; J2405; J2704; J3010; J3490; 99285-25